=== PATIENT | female | born 1960 | race American Indian/Alaskan Native ===

== ENCOUNTER 2016-09-21 17:38 | Inpatient (IN) | payer MEDICAID ==
[2016-09-21 19:58] LABS: BASO # 0.1 K/uL (0.0-0.2); EOS # 0.2 K/uL (0.0-0.7); EOS % 2.9 % (0.0-4.0); HEMATOCRIT 37.6 % (34.0-47.0); LYMPH # 2.8 K/uL (1.0-4.3); MEAN CELL VOLUME 89.1 fL (81.0-99.0); MEAN CORPUSCULAR HEMOGLOBIN 28.6 pg (27.0-31.0); MEAN CORPUSCULAR HGB CONC 32.1 g/dL (33.0-37.0); MEAN PLATELET VOLUME 9.2 fL (7.2-11.7); MONO # 0.4 K/uL (0.0-0.8); MONO % 7.1 % (0.0-10.0); NRBC % 0.1 % (0.0-2.0); RED CELL DISTRIBUTION WIDTH 13.7 % (11.5-14.5); WHITE BLOOD COUNT 5.3 K/uL (4.8-10.8)
[2016-09-21 20:08] LABS: CHLORIDE 105 mmol/L (98-107); SODIUM 142 mmol/L (132-148)
[2016-09-21 20:09] LABS: POTASSIUM 3.9 mmol/L (3.6-5.2)
[2016-09-21 20:11] LABS: ALB/GLOB RATIO 1.3 (1.0-2.1); ALKALINE PHOSPHATASE 82 U/L (38-126); ALT/SGPT 34 U/L (9-52); AST/SGOT 32 U/L (14-36); BILIRUBIN,TOTAL 0.5 mg/dL (0.2-1.3); BLOOD UREA NITROGEN 10 mg/dL (7-17); CALCIUM 9.3 mg/dl (8.6-10.4); CARBON DIOXIDE 24 mmol/L (22-30); GFR AFRICAN-AMERICAN > 60; GLUCOSE,RANDOM 104 mg/dL (65-105)
[2016-09-21 20:12] LABS: ALCOHOL SERUM 78 mg/dl (0-10)
--- NOTE | 2016-09-21 20:57 | C.PDOC ---
History Of Present Illness 56 y/o female comes in for pre-screening of heroin and alcohol detox. Admits to drinking six 24 ounce beers a day and using 20 bags of heroin by nose. Reports buying Clonidine for her blood pressure, but is suppose to take 10mg Norvasc. Denies suicidal, homicidal ideation, or somatic complaints. Time Seen by Provider: 09/21/16 19:33 Chief Complaint (Nursing): Substance Abuse History Per: Patient History/Exam Limitations: no limitations Onset/Duration Of Symptoms: Hrs Current Symptoms Are (Timing): Still Present Suicide/Self Injury Attempted (Context): None Modifying Factor(s): Alcohol, Other (Heroin) Severity: Mild Associated Symptoms: denies: Suicidal Thoughts, Suicidal Plan Recent travel outside of the [place]: No Additional History Per: Patient Past Medical History Reviewed: Historical Data, Nursing Documentation, Vital Signs Vital Signs: Last Vital Signs Temp 98.2 F 09/21/16 17:57 Pulse 70 09/21/16 22:17 Resp 14 09/21/16 22:17 BP 115/60 09/21/16 22:17 Pulse Ox 96 09/21/16 22:17 - Medical History PMH: HTN Family History: States: Unknown Family Hx - Social History Hx Alcohol Use: Yes Hx Substance Use: Yes - Immunization History Hx Tetanus Toxoid Vaccination: No Hx Influenza Vaccination: No Review Of Systems Except As Marked, All Systems Reviewed And Found Negative. Constitutional: Positive for: Other (Alcohol intoxication, heroin use). Negative for: Fever, Chills Eyes: Negative for: Vision Change Cardiovascular: Negative for: Chest Pain Respiratory: Negative for: Shortness of Breath Gastrointestinal: Negative for: Nausea, Vomiting, Abdominal Pain Neurological: Negative for: Weakness, Numbness Psych: Negative for: Suicidal ideation, Other (Homicidal ideation) Physical Exam - Physical Exam Appears: Non-toxic, No Acute Distress, Other ((+) AOB) Skin: Warm, Dry Head: Atraumatic, Normacephalic Eye(s): bilateral: Abnormal Pupil ([place]) Cardiovascular: Rhythm Regular Respiratory: Normal Breath Sounds, No Rales, No Rhonchi, No Wheezing Gastrointestinal/Abdominal: Soft, No Tenderness Extremity: Normal ROM, Capillary Refill (<2secs), Other (No track smith) Neurological/Psych: Oriented x3, Normal Speech, Normal Cognition ED Course And Treatment - Laboratory Results Result Diagrams: 09/21/16 19:50 09/21/16 19:50 Lab Interpretation: Abnormal (tox + opiates, cocaine, etoh) O2 Sat by Pulse Oximetry: 98 (RA) Pulse Ox Interpretation: Normal Reevaluation Time: 22:34 Reassessment Condition: Improved - Physician Consult Information Outcome Of Conversation: [id number]: d/w Crisis Evaluators- ok to Detox Medical Decision Making Medical Decision Making: Impression: 56 y/o female comes in for pre-screening of heroin and alcohol detox. Plans: * Blood work up * Norvasc * [place] * [facility] Disposition Doctor Will See Patient In The: Hospital Counseled Patient/Family Regarding: Studies Performed, Diagnosis - Disposition Disposition: HOSPITALIZED Disposition Time: 22:39 Condition: GOOD Forms: [facility] (Belgian) - Clinical Impression Clinical Impression: Polysubstance dependence including opioid type drug without complication, episodic abuse - Scribe Statement The provider has reviewed the documentation as recorded by the Scribe Lucinda [email or web address] All medical record entries made by the Scribe were at my direction and personally dictated by me. I have reviewed the chart and agree that the record accurately reflects my personal performance of the history, physical exam, medical decision making, and the department course for this patient. I have also personally directed, reviewed, and agree with the discharge instructions and disposition.
[2016-09-21 21:27] LABS: URINE BILIRUBIN NEGATIVE (NEGATIVE); URINE BLOOD NEGATIVE (NEGATIVE); URINE COLOR Colorless (YELLOW); URINE GLUCOSE (UA) NORMAL (Normal); URINE KETONE NEGATIVE (NEGATIVE); URINE LEUKOCYTE ESTERASE NEG Leu/uL (Negative); URINE PROTEIN NEGATIVE (NEGATIVE); URINE UROBILINOGEN NORMAL mg/dL (0.2-1.0); WBC URINE < 1 /hpf (0-5)
--- NOTE | 2016-09-22 01:23 | PCM.BM ---
<Patsy Noriega - Last Filed: 09/22/16 01:27> Treatment Plan Problems - Problems identified on initial assessmt opiate dependence Date Initiated: 09/22/16 Time Initiated: 01:23 Assessment reference: NA Status: Active alcohol dependence Date Initiated: 09/22/16 Time Initiated: 01:28 Assessment reference: NA Status: Active Treatment assets and liabiliti Patient Assests: ADL independent Patient Liabilities: substance abuse - Milieu Protocol Maintain good personal hygiene: daily Encourage regular showers, daily Remind patient to perform daily oral care, daily Assist patient to perform ADL's Maintain personal safety: every shift Educate patient to report safety concerns to staff, every shift Monitor environment for contraband/sharps Medication safety: Monitor for expected outcome, potential side effects: every shift, Assess barriers to learning: every shift, Assess readiness for medication education: every shift <Kerrie Escudero - Last Filed: 09/22/16 13:40> Family Contact Family involvement: Patient does not wish Family/SO involvement Family contact: Patient declines to allow family contact at present - Goals for Treatment Patient goals for treatment: Transition from detox to longterm rehab in either [place] or [place]. Discharge/Continuing Care - Education Needs Education Needs: Patient Medication, Patient Diagnosis/Disease Process, Patient Coping Skills, Patient Anger Management skills, Patient Placement options, Patient Community resources - Discharge Discharge Criteria: Normal sleep pattern, No longer exhibiting s/s of withdrawal , Reduction of target symptoms Discharge to:: Substance Abuse Rehab - Treatment Team Participation Patient/Family/SO Statement: 09/22/16 13:41 "I [facility] go to rehab [facility] in [facility] my Medicaid [facility] ". Discussed with Family/SO: No Was Patient/Family/SO present at Treatment Team Meeting: Yes <Keyshawn Mcrae - Last Filed: 09/26/16 10:38> - Diagnosis (1) Alcohol use disorder, severe, dependence Status: Acute Interventions: 09/26/16 10:36 09/26/16 10:37 09/26/16 10:37 Librium PRN (2) Opiate use Status: Acute Interventions: 09/26/16 10:37 Methadone todd (3) Cocaine use disorder, mild, abuse Status: Acute Interventions: 09/26/16 10:38 PRN
[2016-09-22] MEDS: Multiple Vitamins Tab PO SCH (12:12)
--- NOTE | 2016-09-22 16:34 | PCM.PSYCH ---
Initial Psychiatric Evaluation - Initial Psychiatric Evaluation Type of Admission: Voluntary Legal Status: Capacity Chief Complaint (in patient's own words): I'm here for the treatment of withdrawing from heroine and other substance History of Present Illness and Precipitating Events: Patient is a 56 years old, single, unemployed, female, on disability, with no psychiatric history was admitted for the treatment of withdrawal symptoms from heroine, alcohol and cocaine. Patient reported she started using heroine at 31 years of age. Reported she was using 20-25 bags of harrowing daily , sniffing. Last use reported yesterday. History of 3 previous detox and 2 rehabs. Alcohol: Started using at the age of 16 years. Reported she drinks 2 sixpacks of beer daily. Each can of 24 oz. Last use reported yesterday. Patient reported she had a seizure in the past only once,10 years ago. Cocaine: Started using 10 years ago. Using 2 times per week. Last use reported yesterday, snorting. Also smokes 6 cigarettes daily. Refused nicotine patch. Patient has history of left leg surgery. She was born in [place], has 12th grade of education. Reported last job was more than 20 years ago. Lives with mother, on disability. Never , has 11th sons and 3 daughters from 3 different males , all grown up. Her height is 5 feet 1 inch and weight is 140 pounds. Current Medications: Active Medications Generic Name Dose Route Start Last Admin Trade Name Freq PRN Reason Stop Dose Admin Amlodipine Besylate 5 mg 09/22/16 11:30 09/22/16 12:12 Norvasc PO 5 mg DAILY RENU Administration Chlordiazepoxide 25 mg 09/22/16 11:29 Librium PO Q4H PRN Alcohol Withdrawal Clonidine HCl 0.1 mg 09/22/16 00:01 09/22/16 08:57 Catapres PO 0.1 mg Q8 PRN Administration COWS Score More or Equal to 5 Dicyclomine HCl 10 mg 09/21/16 23:59 Bentyl PO Q6 PRN Muscle spasm Folic Acid 1 mg 09/22/16 11:30 09/22/16 12:12 Folic Acid PO 1 mg DAILY RENU Administration Hydroxyzine HCl 25 mg 09/21/16 23:59 Atarax PO Q6 PRN Anxiety Ibuprofen 600 mg 09/22/16 00:15 Motrin Tab PO Q6 PRN Pain, Mild (1-3) Loperamide HCl 2 mg 09/21/16 23:59 Imodium PO Q8 PRN Diarrhea Multivitamins 1 tab 09/22/16 11:30 09/22/16 12:12 Hexavitamin PO 1 tab DAILY RENU Administration Ondansetron HCl 4 mg 09/21/16 23:59 Zofran Tab PO Q8H PRN Nausea/Vomiting Pneumococcal Polyvalent Vaccine 0.5 ml 09/24/16 10:15 Pneumovax 23 Vaccine IM 09/24/16 10:16 .ONCE ONE Thiamine HCl 100 mg 09/22/16 11:30 09/22/16 12:12 Vitamin B1 Tab PO 100 mg DAILY RENU Administration Trazodone HCl 50 mg 09/22/16 00:11 Desyrel PO HS PRN Insomnia Past Psychiatric History - Past Psychiatric History Previous Treatment History: Inpatient Prior Professional Help: 3 detox and 2 rehabs History of Abuse: None reported History of ETOH/Drug Use: See HPI History of Family Illness: Reported everyone in her family uses drugs including heroin and alcohol. Reported her father had history of heroine and alcohol use. Pertinent Medical Hx (Current Medical&Sleep Prob, Allergies): Allergies Allergy/AdvReac Type Severity Reaction Status Date / Time No Known Allergies Allergy Verified 09/21/16 19:36 Hypertension Asthma Review of Systems - Review of Systems Systems not reviewed;Unavailable: Acuity of Condition - Psychiatric Psychiatric: Other Mental Status Examination - Personal Presentation Personal Presentation: Looks stated age - Affect Affect: Depressed - Motor Activity Motor Activity: Calm - Reliability in Providing Information Reliability in Providing Information: Fair - Speech Speech: Organized - Mood Mood: Depressed - Formal Thought Process Formal Thought Process: No Impairment - Hallucinations/Delusions Hallucinations: Other (None reported) Delusions: Other - Obsessions/Compulsions Obsessions: None Compulsions: None - Cognitive Functions Orientation: Person, Place, Situation, Time Sensorium: Alert Attention/Concentration: Attentive Abstract Thinking: [place] Estimate of Intelligence: Average Judgement: Intact, as evidence by: Insight regarding need for hospitalization Memory: Recent intact, as evidence by: 3/3 object recall, Remote intact, as evidenced by: Ability to recall historical events - Risk Risk: Withdrawal, Diminished functioning - Strength & Assets Inventory Strength & Assets Inventory: Family support, Cooperative - Limitations Limitations: Other DSM 5 DX - DSM 5 DSM 5 Diagnosis: Opiate use disorder severe Alcohol use disorder severe Cocaine use disorder - Recommended/Plan of Treatment Treatment Recommendations and Plan of Treatment: Patient education Supportive therapy Will start Subutex detox protocol for opiate withdrawal symptoms We will start Librium when necessary for alcohol withdrawal symptoms Other when necessary medications Multivitamin Folic acid Timing Projected ELOS: 4-5 days - Smoking Cessation Smoking Cessation Initiated: No Reason for not providing: Patient refused
[2016-09-23] MEDS: Multiple Vitamins Tab PO SCH (09:57)
--- NOTE | 2016-09-23 15:18 | PCM.PYCHPN ---
Psychiatric Progress Note - Psychiatric Progress Note Patient seen today, length of contact: 15 minutes Patient Chief Complaint: I'm not feeling much better. But my sleep was good Problems Identified/Issues Discussed: Patient seen. Chart reviewed. Case discussed with the staff. Issues related to illness and treatment were discussed with the patient. Reported compliant with treatment with no adverse affects. Tolerating treatment very well. Patient reported she was sleeping good or might. Also reported not feeling much better. Still has some withdrawal symptoms including body aches and headaches. Education provided about detox and medication as patient was asking for more methadone. At the time of evaluation, patient was awake alert oriented 3, had no delusions, no auditory or visual hallucinations, no suicidal ideations or homicidal ideations, Medical Problems: Hypertension Asthma Diagnostic Results: Reviewed DSM 5 Symptoms Update: Improving with treatment Medication Change: No Medical Record Reviewed: Yes Mental Status Examination - Cognitive Function Orientation: Person, Place, Situation, Time Memory: Intact Attention: WNL Concentration: WNL Association: WNL Fund of Knowledge: WN Decription of patient's judgement and insights: Fair - Mood Mood: Depressed - Affect Affect: Depressed - Speech Speech: Appropriate - Formal Thought Process Formal Thought Process: No Impairment Psychotic Thoughts and Behaviors: None - Suicidal Ideation Suicidal Ideation: No - Homicidal Ideation Homicidal Ideation: No Goal/Treatment Plan - Goal/Treatment Plan Need for Continued Stay: Remain at risks for inpatient hospitalization, Discharge may exacerbated symptoms, Severe functional impairment Progress Toward Problem(s) and Goals/Treatment Plan: Patient education Supportive therapy Continue treatment as before Estimated Date of D/C: 09/25/16 - Smoking Cessation Smoking Cessation Initiated: No
[2016-09-24] MEDS: Multiple Vitamins Tab PO SCH (09:25)
[2016-09-24 10:07] VITALS: RESP 18
[2016-09-24] MEDS ORDERED: Pneumococcal 23-Valent Vaccine IM ONE (10:15)
--- NOTE | 2016-09-24 14:01 | PCM.PYCHPN ---
Psychiatric Progress Note - Psychiatric Progress Note Patient seen today, length of contact: 15 minutes Patient Chief Complaint: I'm feeling much better Problems Identified/Issues Discussed: Patient seen. Chart reviewed. Case discussed with the staff. Issues related to illness and treatment were discussed with the patient. Reported compliant with treatment with no adverse affects. Tolerating treatment very well. Patient reported feeling much better. Still has some withdrawal symptoms including body aches and headaches. At the time of evaluation, patient was awake alert oriented 3, had no delusions, no auditory or visual hallucinations, no suicidal ideations or homicidal ideations, Medical Problems: Hypertension Asthma Diagnostic Results: Reviewed Medication Change: No Medical Record Reviewed: Yes Mental Status Examination - Cognitive Function Orientation: Person, Place, Situation, Time Memory: Intact Attention: WNL Concentration: WNL Association: WNL Fund of Knowledge: [facility] Decription of patient's judgement and insights: Fair - Mood Mood: Depressed (Much less than before) - Affect Affect: Other (Appropriate) - Speech Speech: Appropriate - Formal Thought Process Formal Thought Process: No Impairment Psychotic Thoughts and Behaviors: None - Suicidal Ideation Suicidal Ideation: No - Homicidal Ideation Homicidal Ideation: No Goal/Treatment Plan - Goal/Treatment Plan Need for Continued Stay: Remain at risks for inpatient hospitalization, Discharge may exacerbated symptoms, Severe functional impairment Progress Toward Problem(s) and Goals/Treatment Plan: Patient education Supportive therapy Continue treatment as before Estimated Date of D/C: 09/25/16 - Smoking Cessation Smoking Cessation Initiated: No
[2016-09-25] MEDS: Multiple Vitamins Tab PO SCH (09:08)
--- NOTE | 2016-09-25 14:45 | PCM.PYCHPN ---
Psychiatric Progress Note - Psychiatric Progress Note Patient seen today, length of contact: 15 minutes Patient Chief Complaint: I'm feeling much better Problems Identified/Issues Discussed: Patient seen. Chart reviewed. Case discussed with the staff. Issues related to illness and treatment were discussed with the patient. Reported compliant with treatment with no adverse affects. Tolerating treatment very well. Patient reported feeling much better. Patient is going to methadone maintenance program in [place]. At the time of evaluation, patient was awake alert oriented 3, had no delusions, no auditory or visual hallucinations, no suicidal ideations or homicidal ideations, Medical Problems: Hypertension Asthma Diagnostic Results: Reviewed DSM 5 Symptoms Update: Improving with treatment Medication Change: No Medical Record Reviewed: Yes Mental Status Examination - Cognitive Function Orientation: Person, Place, Situation, Time Memory: Intact Attention: WNL Concentration: WNL Association: WNL Fund of Knowledge: [facility] Decription of patient's judgement and insights: Fair - Mood Mood: Depressed (Much less than before) - Affect Affect: Other (Appropriate) - Speech Speech: Appropriate - Formal Thought Process Formal Thought Process: No Impairment Psychotic Thoughts and Behaviors: None - Suicidal Ideation Suicidal Ideation: No - Homicidal Ideation Homicidal Ideation: No Goal/Treatment Plan - Goal/Treatment Plan Need for Continued Stay: Remain at risks for inpatient hospitalization, Discharge may exacerbated symptoms, Severe functional impairment Progress Toward Problem(s) and Goals/Treatment Plan: Patient education Supportive therapy Continue treatment as before Patient will go to methadone maintenance program in [place] for follow-up care after discharge from the hospital. Estimated Date of D/C: 09/26/16 - Smoking Cessation Smoking Cessation Initiated: No
[2016-09-26 06:32] VITALS: TEMP 98.1
[2016-09-26] MEDS: Multiple Vitamins Tab PO SCH (09:09)
[2016-09-26 10:18] VITALS: BP 152/87; PULSE 82; O2SAT 99
--- NOTE | 2016-09-26 13:53 | PCM.PYCHDC ---
Mental Status Examination - Mental Status Examination Orientation: Person, Place, Situation, Time Memory: Intact Mood: Neutral Affect: Other (Appropriate) Speech: Appropriate Attention: WNL Concentration: WNL Association: WNL Fund of Knowledge: WNL Formal Thought Process: No Impairment Description of patient's judgement and insight: Fair Psychotic Thoughts and Behaviors: None Suicidal Ideation: No Current Homicidal Ideation?: No Discharge Summary - Discharge Note Reason for Hospitalization: Opiate use disorder Alcohol use disorder Cocaine use disorder Laboratory Data: Reviewed Consultations:: List each consultation separately and include: 1. Reason for request. 2. Findings. 3. Follow-up Summary of Hospital Course include:: 1. Description of specific treatment plan utilized for patients during their course of treatmen. 2. Summarize the time- course for resolution of acute symptoms and/or regressed behaviors. 3. Describe issues identified and worked on during hospitalization. 4. Describe medication utilized. 5. Describe medical problems identified and treated. 6. Reassessment of suicide risk Summary of Hospital Course: Patient is a 56 years old, single, unemployed, female, on disability, with no psychiatric history was admitted for the treatment of withdrawal symptoms from heroine, alcohol and cocaine. Patient reported she started using heroine at 31 years of age. Reported she was using 20-25 bags of harrowing daily , sniffing. Last use reported yesterday. History of 3 previous detox and 2 rehabs. Alcohol: Started using at the age of 16 years. Reported she drinks 2 sixpacks of beer daily. Each can of 24 oz. Last use reported yesterday. Patient reported she had a seizure in the past only once,10 years ago. Cocaine: Started using 10 years ago. Using 2 times per week. Last use reported yesterday, snorting. Also smokes 6 cigarettes daily. Refused nicotine patch. Patient has history of left leg surgery. She was born in [place], has 12th grade of education. Reported last job was more than 20 years ago. Lives with mother, on disability. Never , has 11th sons and 3 daughters from 3 different males , all grown up. Her height is 5 feet 1 inch and weight is 140 pounds. During his stay in the hospital patient was treated with him methadone taper for opiate withdrawal symptoms. Also started on Librium for alcohol withdrawal symptoms. Patient was started on other when necessary medications. With the above treatment patient was stable. Today patient had no withdrawal symptoms and was ready for discharge. At the time of evaluation and discharge, patient was awake alert oriented 3, had no delusions, no auditory or visual hallucinations, no suicidal ideations or homicidal ideations. Patient was discharged in a stable condition. Patient will go to methadone maintenance treatment program in [place]. - Diagnosis (1) Alcohol use disorder, severe, dependence Status: Acute (2) Opiate use Status: Acute (3) Cocaine use disorder, mild, abuse Status: Acute - Final Diagnosis (DSM 5) Condition upon Discharge: STABLE Disposition: HOME/ ROUTINE Follow-up Treatment Plan: Patient will go to methadone maintenance program in [place] for follow-up care after discharge from the hospital. - Smoking Cessation Smoking Cessation Medication prescribed: No - Antipsychotic Medications Pt discharged on 2 or more routine antipsychotic medications: No
== END 2016-09-26 10:00 | disposition home or self-care (01) | DRG 745 ==
LOC: C.ER 17:38 → C.7D 22:39
PROVIDERS: ADMIT Psychiatry & Neurology Psychiatry; ATTEND Psychiatry & Neurology Psychiatry
PROC: HZ81ZZZ Medication Management for Substance Abuse Treatment, Methadone Maintenance (ICD-10-PCS; principal; 2016-09-21)
PROC: HZ2ZZZZ Detoxification Services for Substance Abuse Treatment (ICD-10-PCS; 2016-09-21)
DX: F11.23 Opioid dependence with withdrawal (principal); I10 Essential (primary) hypertension; F10.230 Alcohol dependence with withdrawal, uncomplicated; F17.210 Nicotine dependence, cigarettes, uncomplicated; J45.909 Unspecified asthma, uncomplicated; F14.10 Cocaine abuse, uncomplicated